=== PATIENT | male | born 1990 | race Caucasian/White ===

== ENCOUNTER 2021-10-03 22:03 | Emergency (ER) | payer MEDICAID ==
[~2021-10-03 22:03] MED LIST: DIPH25CA83 PO
--- NOTE | 2021-10-03 22:19 | NUR ---
pt yelling at registration window that "he wants a fucking doctor" "it is his right to see a doctor" asked pt to stop yelling and have a seat. he stated "fuck you call the police" pt escorted out of the lobby by security. per registration patient was dropped of in the parking lot and told that he could "either come to the hospital or go to [facility]". riddhi notified
== END 2021-10-03 23:35 | disposition left against medical advice (07) ==
LOC: ER 22:04
DX: Z04.6 Encounter for general psychiatric examination, requested by authority (principal); Z53.21 Procedure and treatment not carried out due to patient leaving prior to being seen by health care provider

== ENCOUNTER 2021-10-07 03:00 | Emergency (ER) | payer MEDICAID ==
[~2021-10-07] VITALS: Ht 185.4 cm; Wt 75.0 kg
[2021-10-07] MEDS ORDERED: lurasidone 60mg tablet PO ONE (04:15)
[2021-10-07] MEDS ORDERED: nicotine 14mg patch - 24hr TD ONE (04:15)
[2021-10-07] MEDS ORDERED: lurasidone 60mg tablet PO SCH (04:15)
--- NOTE | 2021-10-07 04:35 | NUR ---
PT WAS PROVIDED FOOD AND OTHER COMFORT MEASURES. PT RESTING QUIETLY AT THIS TIME.
[2021-10-07 04:40] LABS: BASOPHILS # (AUTO) 0.2 X10'3 (0-0.2); EOSINOPHILS # (AUTO) 0.1 X10'3 (0-0.9); EOSINOPHILS % (AUTO) 0.7 % (0-6); HEMATOCRIT 48.5 % (42.0-52.0); HEMOGLOBIN 16.8 g/dl (14.0-17.9); LYMPHOCYTES % (AUTO) 30.9 % (21-51); MEAN CORPUSCULAR HEMOGLOBIN 30.4 PG (27.0-31.0); MEAN CORPUSCULAR HGB CONC 34.6 g/dL (33.0-36.5); MEAN CORPUSCULAR VOLUME 87.8 FL (78-98); MEAN PLATELET VOLUME 8.7 FL (7.4-10.4); MONOCYTES # (AUTO) 1.1 X10'3 (0-0.9); MONOCYTES % (AUTO) 11.3 % (2-12); NEUTROPHILS # (AUTO) 5.3 X10'3 (1.8-7.7); NEUTROPHILS % (AUTO) 55.1 % (42-75); PLATELET COUNT 266 X10'3 (140-440); RED BLOOD COUNT 5.52 X10'6 (4.70-6.10); RED CELL DISTRIBUTION WIDTH 13.7 % (11.5-14.5); WHITE BLOOD COUNT 9.7 X10'3 (4.5-11.0)
[2021-10-07 04:55] LABS: ALANINE AMINOTRANSFERASE 23 U/L (12-78); ALBUMIN 4.3 G/DL (3.4-5.0); ALBUMIN/GLOBULIN RATIO 1.1 (1.1-1.5); ALKALINE PHOSPHATASE 132 IU/L (46-116); ANION GAP 14 (8-16); ASPARTATE AMINO TRANSFERASE 25 U/L (10-37); BILIRUBIN,TOTAL 1.1 MG/DL (0.1-1.0); BLOOD UREA NITROGEN 14 MG/DL (7-18); BUN/CREATININE RATIO 15.6 (5.4-32.0); CALCIUM 9.1 MG/DL (8.5-10.1); CHLORIDE 103 MMOL/L (99-107); GLUCOSE 86 MG/DL (70-104); POTASSIUM 3.3 MMOL/L (3.5-5.1); SODIUM 139 MMOL/L (135-145); TOTAL CARBON DIOXIDE 21.6 MMOL/L (24-32); TOTAL PROTEIN 8.2 G/DL (6.4-8.2); eGFR > 90 ML/MIN
[2021-10-07 05:04] LABS: ETHANOL 0.049 GM/DL (0.0-0.010)
[2021-10-07] MEDS ORDERED: ondansetron 4mg rapidly disintigrating tab PO ONE ×2 (05:05)
--- NOTE | 2021-10-07 06:30 | NUR ---
Recieved report from Andrae.
--- NOTE | 2021-10-07 06:33 | NUR ---
Packet faxed to [facility]
--- NOTE | 2021-10-07 09:16 | NUR ---
Pt eating breakfast, am medication given, pt tolerated well.
[2021-10-07 09:30] LABS: URINE AMPHETAMINE SCREEN POSITIVE (Neg); URINE BARBITUATE SCREEN NEGATIVE (Neg); URINE BENZODIAZEPINES SCREEN NEGATIVE (Neg); URINE CANNABINOID SCREEN POSITIVE (Neg); URINE COCAINE SCREEN NEGATIVE (Neg); URINE METHADONE SCREEN NEGATIVE (Neg); URINE OPIATE SCREEN NEGATIVE (Neg); URINE PHENCYCLIDINE SCREEN NEGATIVE (Neg)
--- NOTE | 2021-10-07 10:51 | NUR ---
[facility] is at the bedside evaluating the patient
--- NOTE | 2021-10-07 12:26 | NUR ---
Pt d/c home in good condition, instructions given ,pt verbalized understanding.
[2021-10-07 16:05] VITALS: BP 108/79
[2021-10-08] MEDS ORDERED: lurasidone 60mg tablet PO SCH (08:00)
== END 2021-10-07 16:08 | disposition home or self-care (01) ==
LOC: ER 03:00
DX: F20.9 Schizophrenia, unspecified (principal); Z20.822 Contact with and (suspected) exposure to COVID-19; F12.10 Cannabis abuse, uncomplicated; Z87.81 Personal history of (healed) traumatic fracture
CPT/HCPCS: 36415; 80053; 80305; 80320; 84443; 85025; 87811; 99285

== ENCOUNTER 2021-10-18 00:46 | Emergency (ER) | payer MEDICAID ==
[~2021-10-18] VITALS: Ht 185.4 cm; Wt 75.0 kg
[2021-10-18] MEDS ORDERED: ketorolac trometh inj. 60 MG/2 ML VIAL IM ONE (00:55)
[2021-10-18] MEDS ORDERED: acetaminophen 325mg tablet PO ONE (00:55)
[2021-10-18] MEDS ORDERED: LORazepam 1 MG tablet PO ONE (01:00)
[2021-10-18] MEDS ORDERED: lurasidone 20mg tablet PO SCH (01:00)
[2021-10-18] MEDS ORDERED: OLANZapine 5mg rapidly disint. tablet PO ONE (01:00)
[2021-10-18] MEDS ORDERED: buprenorphine/naloxone 8MG-2MG SUBlingual film SL SCH (01:01)
[2021-10-18] MEDS ORDERED: ESCITALOPRAM OXALATE 5 MG TABLET PO SCH (01:01)
--- NOTE | 2021-10-18 02:51 | NUR ---
PT WAS VERBALLY AGGRESSIVE UPON ARRIVAL AND CURSING AT STAFF. RN USED THERAPEUTIC COMMUNICATION TO CALM PATIENT AND ADMINISTERED MEDICATION PER MD ORDER. PT HAS REMOVED HIS VITAL MONITORING EQUIPMENT. PT HAS FALLEN ASLEEP AND ANKLE IS NOW SPLINTED PER MD ORDER.
[2021-10-18] MEDS ORDERED: LURA20TA PO (03:08)
--- NOTE | 2021-10-18 05:01 | NUR ---
PT REFUSED VITAL MONITORING. PT IS STILL SLEEPING. EQUAL RISE AND FALL OF CHEST NOTED
--- NOTE | 2021-10-18 05:25 | NUR ---
RN ATTEMPTED TO WAKE PATIENT FOR DISCHARGE. PT IS TOO GROGGY TO SAFELY GO HOME. RN PLACED PT BACK ON VITAL MONITORING WITH PT PERMISSION AND WILL CONTINUE TO MONITOR PATIENT HE RESTS AND WAKES UP
--- NOTE | 2021-10-18 06:14 | NUR ---
PT STATED HE WOULD LIKE TO BE TAKEN BY [facility] TO [address] [place] [address] WHEN HE IS AWAKE ENOUGH TO LEAVE
--- NOTE | 2021-10-18 07:22 | NUR ---
patient awake, educated on use of crutches at this time and discharged [facility] with bus pass
[2021-10-18 07:23] VITALS: BP 109/64
== END 2021-10-18 07:24 | disposition home or self-care (01) ==
LOC: ER 00:47
DX: S93.401A Sprain of unspecified ligament of right ankle, initial encounter (principal); F29 Unspecified psychosis not due to a substance or known physiological condition; F20.9 Schizophrenia, unspecified; F12.10 Cannabis abuse, uncomplicated; F14.10 Cocaine abuse, uncomplicated; Z79.899 Other long term (current) drug therapy; W17.89XA Other fall from one level to another, initial encounter; Y93.89 Activity, other specified; Y92.89 Other specified places as the place of occurrence of the external cause; Y99.8 Other external cause status
CPT/HCPCS: 29125; 73610; 96372; 99284; J1885

== ENCOUNTER 2023-06-25 23:54 | Emergency (ER) | payer MEDICAID ==
[~2023-06-25] VITALS: Ht 185.4 cm; Wt 90.0 kg
[~2023-06-25 23:54] MED LIST changes: +GABA300C PO; +LURA20TA8 PO
[2023-06-26 00:30] VITALS: BP 119/75; PULSE 106; TEMP 98.3; O2SAT 98
[2023-06-26 01:14] VITALS: RESP 19
[2023-06-26] MEDS ORDERED: NALO4SPR BOTHNARES (01:53)
== END 2023-06-26 02:04 | disposition home or self-care (01) ==
LOC: ER 23:54
DX: T40.411A Poisoning by fentanyl or fentanyl analogs, accidental (unintentional), initial encounter (principal); F12.90 Cannabis use, unspecified, uncomplicated; Z79.899 Other long term (current) drug therapy; Y92.89 Other specified places as the place of occurrence of the external cause
CPT/HCPCS: 99283

== ENCOUNTER 2024-04-17 11:59 | Emergency (ER) | payer MEDICAID ==
[~2024-04-17] VITALS: Ht 182.9 cm; Wt 89.0 kg
[~2024-04-17 11:59] MED LIST changes: +NALO4SPR BOTHNARES
[2024-04-17 12:28] VITALS: BP 174/91; PULSE 98; RESP 18; TEMP 97.9; O2SAT 97
[2024-04-17] MEDS ORDERED: HYDR-3686 PO (15:10)
[2024-04-17] MEDS ORDERED: PERM60CR4 TOP (15:10)
== END 2024-04-17 15:20 | disposition home or self-care (01) ==
LOC: ER 12:00
DX: Z20.7 Contact with and (suspected) exposure to pediculosis, acariasis and other infestations (principal); F20.9 Schizophrenia, unspecified; F12.90 Cannabis use, unspecified, uncomplicated; F11.90 Opioid use, unspecified, uncomplicated; F17.290 Nicotine dependence, other tobacco product, uncomplicated
CPT/HCPCS: 99283

== ENCOUNTER 2024-10-01 12:40 | Emergency (ER) | payer MEDICAID ==
[~2024-10-01] VITALS: Ht 180.3 cm; Wt 83.2 kg
[~2024-10-01 12:40] MED LIST changes: +PERM60CR4 TOP
[2024-10-01 12:53] VITALS: BP 130/68; PULSE 77; RESP 18; TEMP 97.8; O2SAT 98
[2024-10-01] MEDS ORDERED: HYDR-3686 PO (12:59)
[2024-10-01] MEDS ORDERED: BUPR1FIL3 SL (12:59)
[2024-10-01] MEDS ORDERED: TRAZ-251 PO (12:59)
[2024-10-01] MEDS ORDERED: GABA-1405 PO (12:59)
[2024-10-01] MEDS ORDERED: NALO4SPR BOTHNARES (13:01)
--- NOTE | 2024-10-01 13:01 | Physician Documentation ---
HPI ~ General Chief Complaint: Medication Refill Stated Complaint: MED REQUEST Time Seen by MD: 12:55 Primary Medical Doctor: None History of Present Illness HPI Comments Is a 34-year-old male with a history of polysubstance abuse who presents to the emergency department requesting medication refills. He reports that he missed his last primary care appointment. His main concern is obtaining a refill on his Suboxone. He reports that he otherwise feels well and denies additional concerns. Medication Reconciliation Allergies: Coded Allergies: No Known Allergies (Unverified , 10/01/24) Scheduled Buprenorphine Hcl/Naloxone Hcl (Suboxone 8 Mg-2 Mg Sl Film), 1 STRIP SL TID Gabapentin (Neurontin), 300 MG PO Q6H Gabapentin (Gabapentin), 1 TAB PO Q8H Hydroxyzine Hcl (Atarax), 1 TAB PO Q12H Lurasidone HCl (Latuda), 1 TAB PO DAILY Naloxone HCl (Narcan), 1 SPRAYS BOTHNARES ONCE Naloxone HCl (Narcan), 1 SPRAYS BOTHNARES ONCE Permethrin (Permethrin), 2 APPLIC TOP ONCE Trazodone HCl (Trazodone HCl), 1 TAB PO HS Scheduled PRN Diphenhydramine Hcl (Benadryl), 25 MG PO Q4H PRN for itching Past Medical History Past Medical History: Extremity Fracture, *PSYCH*, Schizophrenia Past Surgical History: no surgical history Alcohol Use: Occasionally Drug Use: marijuana, heroin Lives In: Home Occupation: employed Review of Systems ROS As stated above in the HPI, otherwise all systems are reviewed and negative. Physical Exam Physical Exam Vital Signs: Temperature: 97.8, Source: Oral, Heart Rate: 77, Respiratory Rate: 18, BP: 130/68, Pulse Oximetry: 98, Weight: 83.250 Oxygen Flow Rate: 0 Physical Exam General: Alert, no apparent distress. HEENT: PERRL, EOMI, no injection, moist mucous membranes. Neck: Full range of motion. Respiratory: Lungs clear, no respiratory distress. Chest: No accessory muscle use. Cardiovascular: Regular rate and rhythm, no murmurs. Gastrointestinal: Soft, nontender, nondistended. Bowels sounds present. Extremities: Normal range of motion, no deformity. Neurologic: Oriented x4. Psychiatric: Normal mood and affect. Skin: Normal color, warm and dry. No edema, no ecchymosis. Progress Results/Orders Results/Orders Vital Signs 10/01/24 12:53 Temp 97.8 Pulse 77 Resp 18 B/P (MAP) 130/68 Pulse Ox 98 O2 Flow Rate 0 Medical Decision Making Differential Dx:Considerations: Include: Adverse circumstances, Economic, Psychosocial, Medical services unavail., Medication refill, Medication non- compliance Departure Time of Disposition: 12:55 Disposition: 01 HOME / SELF CARE / HOMELESS Impression: Primary Impression: General medical exam Additional Impression: Medication refill Condition: Stable Discharge Instructions: Medical Screening Exam, Medicine Refill at the Emergency Department Additional Instructions: Medication refills sent. Followup with primary care. Referrals: NO PRIMARY CARE PROVIDER (PCP) Prescriptions Naloxone HCl (Narcan) 4 Mg/Actuation [place] 1 SPRAYS BOTHNARES ONCE for 14 Days, #1 EA 0 Refills Prov: KRIS MADERA NP 10/01/24 Gabapentin (Gabapentin) 600 Mg Tablet 1 TAB PO Q8H for 10 Days, #30 TAB 0 Refills Prov: KRIS MADERA NP 10/01/24 Trazodone HCl (Trazodone HCl) 50 Mg Tablet 1 TAB PO HS for insomnia for 30 Days, #30 TAB 0 Refills Prov: KRIS MADERA NP 10/01/24 Buprenorphine Hcl/Naloxone Hcl (Suboxone 8 Mg-2 Mg Sl Film) 8 Mg-2 Mg Film 1 STRIP SL TID for 5 Days, #15 STRIP Prov: KRIS MADERA NP 10/01/24 Hydroxyzine Hcl (Atarax) 25 Mg Tablet 1 TAB PO Q12H for anxiety for 30 Days, #60 TAB 0 Refills Prov: KRIS MADERA NP 10/01/24 Education Educated: Patient Educated regarding: diagnosis, treatment, prognosis, need for follow up Signature Scribe Signature: x Attestation: The note accurately reflects work and decisions made by me.Kris Hedrick NP 10/01/24 13:07 KRIS MADERA NP Oct 01, 2024 13:01
== END 2024-10-01 13:08 | disposition home or self-care (01) ==
LOC: ER 12:41
DX: F19.10 Other psychoactive substance abuse, uncomplicated (principal); Z76.0 Encounter for issue of repeat prescription; F20.9 Schizophrenia, unspecified; F12.90 Cannabis use, unspecified, uncomplicated
CPT/HCPCS: 99281

== ENCOUNTER 2024-10-13 12:20 | Emergency (ER) | payer MEDICAID ==
[~2024-10-13] VITALS: Ht 180.3 cm; Wt 82.7 kg
[~2024-10-13 12:20] MED LIST changes: +GABA-1405 PO; +HYDR-3686 PO; +TRAZ-251 PO
[2024-10-13 12:21] VITALS: TEMP 98
--- NOTE | 2024-10-13 12:28 | ELECTROCARDIOGRAPH REPORT ---
[facility] Test Date: 2024-10-13 Test Time: 12:27:28 Pat Name: MANISHA FERNANDES Department: [facility]-ER Patient ID: [id number] Room: Gender: M Bar Supervisor: : 1990 Requested By: GABRIELA HICKS Order Number: [id number] Reading MD: Measurements Intervals [place] Rate: 76 P: 62 TX: 148 QRS: 76 QRSD: 98 T: 44 QT: 379 QTc: 427 Interpretive Statements Sinus rhythm Please click the below link to view image of tracing.
[2024-10-13 12:40] LABS: MEAN PLATELET VOLUME 8.5 FL (7.4-10.4); RED CELL DISTRIBUTION WIDTH 14.0 % (11.5-14.5)
--- NOTE | 2024-10-13 12:50 | RADIOLOGY REPORT ---
CHEST RADIOGRAPH Indication: CP Technique: Single frontal view of the chest was obtained Comparison: None FINDINGS: Lines and Tubes: None Lungs: No focal consolidation. Pleura: No effusion. No pneumothorax. Cardiomediastinal contours: Unremarkable Bones: No acute osseous abnormality. IMPRESSION: No acute cardiopulmonary disease.
[2024-10-13 13:01] LABS: CREATININE 0.87 MG/DL (0.60-1.10); TOTAL CARBON DIOXIDE 27.4 MMOL/L (24-32); eCRCL 129 ML/MIN; eGFR > 90 ML/MIN
[2024-10-13 13:06] LABS: PRO BRAIN NATRIURETIC PEPTIDE < 30 PG/ML (0-125)
[2024-10-13 13:50] LABS: BASOPHILS % (MANUAL) 2.0 % (0-1); EOSINOPHILS % (MANUAL) 2.0 % (0-6); LYMPHOCYTES % (MANUAL) 59.0 % (21-51); MONOCYTES % (MANUAL) 7.0 % (2-12); NEUTROPHILS % (MANUAL) 30.0 % (42-75); PLATELET ESTIMATE NORMAL
--- NOTE | 2024-10-13 14:48 | Physician Documentation ---
History of Present Illness ~ Chief Complaint: Chest Pain Stated Complaint: CP Time Seen by MD: 14:13 Primary Medical Doctor: None Source: patient Mode of Arrival: POV Exam Limitations: no limitations HEART Score: 0 HPI 34-year-old male with chief complaint chest pain just prior to arrival. He states he was playing a video game on his phone waiting for a friend and suddenly he felt a sharp chest pain and he states he got really concerned about as he there were felt anything like this before and came straight to the ER however he states the pain only lasted for a few minutes and by the time he got to the ER it resolved. He has not had any pain since he has been at the ER for a few hours now. No shortness of breath, cough, heartburn or acid reflux, nausea, abdominal pain Medication Reconciliation Allergies: Coded Allergies: No Known Allergies (Unverified , 10/01/24) Scheduled Gabapentin (Neurontin), 300 MG PO Q6H Gabapentin (Gabapentin), 1 TAB PO Q8H Hydroxyzine Hcl (Atarax), 1 TAB PO Q12H Lurasidone HCl (Latuda), 1 TAB PO DAILY Naloxone HCl (Narcan), 1 SPRAYS BOTHNARES ONCE Naloxone HCl (Narcan), 1 SPRAYS BOTHNARES ONCE Permethrin (Permethrin), 2 APPLIC TOP ONCE Trazodone HCl (Trazodone HCl), 1 TAB PO HS Scheduled PRN Diphenhydramine Hcl (Benadryl), 25 MG PO Q4H PRN for itching Discontinued Medications Buprenorphine Hcl/Naloxone Hcl (Suboxone 8 Mg-2 Mg Sl Film), 1 STRIP SL TID Discontinued Reason: Auto Discontinued Past Medical History Past Medical History: Extremity Fracture, *PSYCH*, Schizophrenia Past Surgical History: no surgical history Alcohol Use: Occasionally Drug Use: marijuana, heroin Lives In: Home Occupation: employed Review of Systems All Other Systems at this time: Reviewed and Negative Physical Exam Vital Signs: Temperature: 98.0, Source: Oral, Heart Rate: 57, Respiratory Rate: 16, BP: 125/70, Pulse Oximetry: 99, Weight: 82.700 Oxygen Flow Rate: 0 Physical Exam General Appearance: Alert, WD/WN. NAD. HEENT: NCAT, PERRL, EOMI. Neck: Supple, trachea midline. Cardiovascular: RRR. No m/r/g. Lungs: CTAB. Breathing unlabored Abdomen: Soft, nondistended nontender Extremities: Normal inspection. No edema. Skin: Warm/dry, normal color Neurological: Alert and oriented x4, normal gait. Psychiatric: Affect congruent with mood. Progress Results/Orders Reviewed/noted all lab results: Yes Results/Orders Vital Signs 10/13/24 10/13/24 10/13/24 10/13/24 12:21 12:34 13:32 14:59 Temp 98.0 Pulse 84 57 62 Resp 16 16 16 B/P (MAP) 122/82 125/70 (88) 125/77 Pulse Ox 99 99 98 O2 Flow Rate 0 0 Laboratory Tests Test 10/13/24 12:29 White Blood Count 4.7 Red Blood Count 4.72 Hemoglobin 14.4 Hematocrit 41.9 L Mean Corpuscular Volume 88.7 Mean Corpuscular Hemoglobin 30.4 Mean Corpuscular Hemoglobin Concent 34.3 Red Cell Distribution Width 14.0 Platelet Count 234 Mean Platelet Volume 8.5 Neutrophils (%) (Auto) 32.7 L Lymphocytes (%) (Auto) 53.9 H Monocytes (%) (Auto) 10.6 Eosinophils (%) (Auto) 1.7 Basophils (%) (Auto) 1.1 H Neutrophils # (Auto) 1.5 L Lymphocytes # (Auto) 2.5 Monocytes # (Auto) 0.5 Eosinophils # (Auto) 0.1 Basophils # (Auto) 0.1 CBC Comment Differential Total Cells Counted 100 Neutrophils % (Manual) 30.0 L Lymphocytes % (Manual) 59.0 H Monocytes % (Manual) 7.0 Eosinophils % (Manual) 2.0 Basophils % (Manual) 2.0 H Platelet Estimate Normal Red Blood Cell Morphology Normal Basophilic Stippling Sodium Level 141 Potassium Level 4.2 Chloride Level 106 Carbon Dioxide Level 27.4 Anion Gap 8 Blood Urea Nitrogen 9 Creatinine 0.87 Estimated GFR/1.73 m2 > 90 BUN/Creatinine Ratio 10.3 Glucose Level 108 H Calcium Level 9.0 Troponin I High Sensitivity 8 Pro-B-Type Natriuretic Peptide < 30 Albumin 3.9 Chemistry Comments Heart Score: Heart Score Response (Comments) Value History Slightly Suspicious 0 Age <45 0 Risk Factors No known risk factors 0 Troponin Normal limit 0 Total 0 Medical Decision Making Heart Score: 0 Differential Dx:Considerations: Include: angina, aortic dissection, chest wall pain, cholelithiasis, CHF, costochondritis, esophageal reflux/spasm, gastritis, herpes zoster, myocardial infarction, pericarditis, pleuritis, pancreatitis, pneumonia, pneumothorax, pulmonary embolus, other Departure Time of Disposition: 19:19 ([] as well as other positive symptoms noted in the HPI. Otherwise all other systems are reviewed and negative. Start ) Disposition: 01 HOME / SELF CARE / HOMELESS Impression: Primary Impression: Chest pain Qualified Codes: R07.9 - Chest pain, unspecified Condition: Stable Discharge Instructions: Nonspecific Chest Pain, Adult Additional Instructions: WORK UP IN ER WAS NEGATIVE LABS NORMAL EKG NORMAL CHEST XRAY NORMAL Referrals: NO PRIMARY CARE PROVIDER (PCP) Education Educated: Patient Educated regarding: diagnosis, treatment, need for follow up Signature Scribe Signature: x Attestation: POLINA Art Oct 13, 2024 14:48
[2024-10-13 14:59] VITALS: BP 125/77; PULSE 62; RESP 16; O2SAT 98
== END 2024-10-13 15:01 | disposition home or self-care (01) ==
LOC: ER 12:21
DX: R07.89 Other chest pain (principal); F20.9 Schizophrenia, unspecified; F12.90 Cannabis use, unspecified, uncomplicated; F11.90 Opioid use, unspecified, uncomplicated; Z72.89 Other problems related to lifestyle
CPT/HCPCS: 36415; 71045; 80048; 83880; 84484; 85007; 85025; 93005; 99285

== ENCOUNTER 2024-10-20 08:21 | Emergency (ER) | payer MEDICAID ==
[~2024-10-20] VITALS: Ht 180.3 cm; Wt 90.1 kg
[2024-10-20 08:33] VITALS: BP 121/62; PULSE 83; RESP 16; TEMP 98.3; O2SAT 98
--- NOTE | 2024-10-20 08:35 | Physician Documentation ---
HPI ~ General Stated Complaint: MED REQUEST Time Seen by MD: 08:34 Primary Medical Doctor: None History of Present Illness HPI Comments This is a 34-year-old male who presents from [facility], where he is currently in treatment for alcohol and opioid abuse history. He notes that he is out of his usual daily medications, and requests a refill as he does not have a local provider. He denies any symptoms of illness or other concerns. Medication Reconciliation Allergies: Coded Allergies: No Known Allergies (Unverified , 10/01/24) Scheduled Acamprosate Calcium (Acamprosate Calcium), 2 TAB PO TID Clonidine HCl (Clonidine HCl), 1 TAB PO BID Gabapentin (Neurontin), 300 MG PO Q6H Gabapentin (Gabapentin), 1 TAB PO Q8H Gabapentin (Gabapentin), 1 TAB PO Q8H Hydroxyzine Hcl (Atarax), 1 TAB PO Q12H Hydroxyzine Hcl* (Atarax*), 1 TAB PO Q12H Lurasidone HCl (Latuda), 1 TAB PO DAILY Naloxone HCl (Narcan), 1 SPRAYS BOTHNARES ONCE Naloxone HCl (Narcan), 1 SPRAYS BOTHNARES ONCE Permethrin (Permethrin), 2 APPLIC TOP ONCE Prazosin Hcl (Prazosin Hcl), 1 CAP PO HS Trazodone HCl (Trazodone HCl), 1 TAB PO HS Trazodone HCl (Trazodone HCl), 1 TAB PO HS Scheduled PRN Buprenorphine HCl/Naloxone HCl (Buprenorphin-Naloxon 8-2 mg Tb), 2 TAB SL QDAY PRN PRN for opioid w/d Diphenhydramine Hcl (Benadryl), 25 MG PO Q4H PRN for itching Past Medical History Past Medical History: Extremity Fracture, *PSYCH*, Schizophrenia Past Surgical History: no surgical history Alcohol Use: Occasionally Drug Use: marijuana, heroin Lives In: Home Occupation: employed Review of Systems ROS As stated above in the HPI, otherwise all systems are reviewed and negative. Physical Exam Physical Exam Physical Exam General: Alert, no apparent distress. HEENT: PERRL, EOMI, no injection, moist mucous membranes. Neck: Full range of motion. Respiratory: Lungs clear, no respiratory distress. Chest: No accessory muscle use. Cardiovascular: Regular rate and rhythm, no murmurs. Gastrointestinal: Soft, nontender, nondistended. Bowels sounds present. Extremities: Normal range of motion, no deformity. Neurologic: Oriented x4. Psychiatric: Normal mood and affect. Skin: Normal color, warm and dry. No edema, no ecchymosis. Progress Results/Orders Results/Orders Vital Signs 10/20/24 08:33 Temp 98.3 Pulse 83 Resp 16 B/P (MAP) 121/62 Pulse Ox 98 O2 Flow Rate 0 Medical Decision Making Differential Dx:Considerations: Include: Adverse circumstances, Economic, Psychosocial, Medical services unavail., Medication refill, Medication non- compliance Departure Time of Disposition: 09:10 Disposition: HOME / SELF CARE / HOMELESS Impression: Primary Impression: General medical exam Additional Impression: Medication refill Condition: Stable Discharge Instructions: Medical Screening Exam, Medicine Refill at the Emergency Department Additional Instructions: You were provided with a short supply of your meds. You need to see a primary care for further refills. Return if needed. Referrals: NO PRIMARY CARE PROVIDER (PCP) Prescriptions Hydroxyzine Hcl* (Atarax*) 25 Mg Tablet 1 TAB PO Q12H for anxiety for 10 Days, #20 TAB Prov: KRIS MADERA NP 10/20/24 Prazosin Hcl (Prazosin Hcl) 2 Mg Capsule 1 CAP PO HS for 10 Days, #10 CAP 0 Refills Prov: KRIS MADERA NP 10/20/24 Trazodone HCl (Trazodone HCl) 100 Mg Tablet 1 TAB PO HS for 10 Days, #10 TAB 0 Refills Prov: KRIS MADERA NP 10/20/24 Clonidine HCl (Clonidine HCl) 0.1 Mg Tablet 1 TAB PO BID for 10 Days, #20 TAB 0 Refills Prov: KRIS MADERA NP 10/20/24 Gabapentin (Gabapentin) 600 Mg Tablet 1 TAB PO Q8H for 10 Days, #30 TAB 0 Refills Prov: KRIS MADERA NP 10/20/24 Acamprosate Calcium (Acamprosate Calcium) 333 Mg Tablet.dr 2 TAB PO TID for 10 Days, #60 TAB 0 Refills Prov: KRIS MADERA NP 10/20/24 Buprenorphine HCl/Naloxone HCl (Buprenorphin-Naloxon 8-2 mg Tb) 8 Mg-2 Mg Tab.subl 2 TAB SL QDAY PRN PRN for opioid w/d for 7 Days, #14 TAB 0 Refills Prov: KRIS MADERA NP 10/20/24 Education Educated: Patient Educated regarding: diagnosis, treatment, prognosis, need for follow up Signature Scribe Signature: x Attestation: The note accurately reflects work and decisions made by me.Kris Madera - MAHAMED 10/20/24 09:47 KRIS MADERA NP Oct 20, 2024 08:35
[2024-10-20] MEDS ORDERED: CLON0.1T2 PO (09:13)
[2024-10-20] MEDS ORDERED: TRAZ-256 PO (09:13)
[2024-10-20] MEDS ORDERED: BUPR1TAB45 SL (09:13)
[2024-10-20] MEDS ORDERED: PRAZ2CAP2 PO (09:13)
[2024-10-20] MEDS ORDERED: ACAM333T8 PO (09:13)
== END 2024-10-20 09:19 | disposition home or self-care (01) ==
LOC: ER 08:21
DX: Z00.8 Encounter for other general examination (principal); Z76.0 Encounter for issue of repeat prescription; F20.9 Schizophrenia, unspecified; F12.90 Cannabis use, unspecified, uncomplicated; F11.90 Opioid use, unspecified, uncomplicated
CPT/HCPCS: 99281

== ENCOUNTER 2024-11-02 08:59 | Emergency (ER) | payer MEDICAID ==
[~2024-11-02] VITALS: Ht 180.3 cm; Wt 83.1 kg
[~2024-11-02 08:59] MED LIST changes: +ACAM333T8 PO; +BUPR1TAB45 SL; +CLON0.1T2 PO; +PRAZ2CAP2 PO; +TRAZ-256 PO
[2024-11-02 09:12] VITALS: BP 94/64; PULSE 62; RESP 18; TEMP 98.6; O2SAT 98
[2024-11-02] MEDS ORDERED: GABA-1405 PO (11:25)
[2024-11-02] MEDS ORDERED: BUPR1TAB45 SL (11:25)
[2024-11-02] MEDS ORDERED: HYDR-3686 PO (11:25)
[2024-11-02] MEDS ORDERED: CLON0.1T2 PO (11:25)
[2024-11-02] MEDS ORDERED: ACAM333T8 PO (11:25)
[2024-11-02] MEDS ORDERED: TRAZ-256 PO (11:25)
[2024-11-02] MEDS ORDERED: ARIP10TA87 PO (11:30)
--- NOTE | 2024-11-02 11:36 | Physician Documentation ---
HPI ~ General Chief Complaint: Medication Request Stated Complaint: MED REQUEST Time Seen by MD: 10:49 Primary Medical Doctor: None History of Present Illness HPI Comments This is a 34-year-old male with a history of schizophrenia and multiple substance abuse who is participating in a residential rehab program at [facility], patient presents requesting refill of multiple medications as he has not had a chance to establish with a primary care provider yet, patient is additionally requesting to be restarted on Abilify which he has been taking previously for schizophrenia as he is beginning to have symptoms again such as auditory hallucinations, patient denies any SI or HI. Patient reports no other acute symptoms or concerns. Medication Reconciliation Allergies: Coded Allergies: No Known Allergies (Unverified , 11/02/24) Scheduled Acamprosate Calcium (Acamprosate Calcium), 2 TAB PO TID Aripiprazole (Aripiprazole), 1 TAB PO DAILY Clonidine HCl (Clonidine HCl), 1 TAB PO BID Gabapentin (Neurontin), 300 MG PO Q6H Gabapentin (Gabapentin), 1 TAB PO Q8H Gabapentin (Gabapentin), 1 TAB PO Q8H Hydroxyzine Hcl (Atarax), 1 TAB PO Q12H Lurasidone HCl (Latuda), 1 TAB PO DAILY Naloxone HCl (Narcan), 1 SPRAYS BOTHNARES ONCE Naloxone HCl (Narcan), 1 SPRAYS BOTHNARES ONCE Permethrin (Permethrin), 2 APPLIC TOP ONCE Prazosin Hcl (Prazosin Hcl), 1 CAP PO HS Trazodone HCl (Trazodone HCl), 1 TAB PO HS Trazodone HCl (Trazodone HCl), 1 TAB PO HS Scheduled PRN Buprenorphine HCl/Naloxone HCl (Buprenorphin-Naloxon 8-2 mg Tb), 2 TAB SL QDAY PRN PRN for opioid w/d Diphenhydramine Hcl (Benadryl), 25 MG PO Q4H PRN for itching Discontinued Medications Hydroxyzine Hcl* (Atarax*), 1 TAB PO Q12H Discontinued Reason: Auto Discontinued Past Medical History Past Medical History: Extremity Fracture, *PSYCH*, Schizophrenia Past Surgical History: no surgical history Alcohol Use: Occasionally Drug Use: marijuana, heroin Lives In: Home Occupation: employed Review of Systems ROS As stated above in the HPI, otherwise all systems are reviewed and negative. Physical Exam Physical Exam Vital Signs: Temperature: 98.6, Source: Temporal, Heart Rate: 62, Respiratory Rate: 18, BP: 94/64, Pulse Oximetry: 98, Weight: 83.100 Oxygen Flow Rate: 0 Physical Exam VITALS: Reviewed and as above. GENERAL: Alert, nontoxic appearing, no apparent distress. RESPIRATORY: No increased work of breathing, no respiratory distress, speaking in full clear sentences PSYCH: Normal mood and affect, voicing no HI or SI. no agitation Progress Results/Orders Results/Orders Vital Signs 11/02/24 09:12 Temp 98.6 Pulse 62 Resp 18 B/P (MAP) 94/64 Pulse Ox 98 O2 Flow Rate 0 Medical Decision Making Findings Review of medication records indicate patient has been on medications requested for some time, review of previous visit indicates patient has been advised to follow up with primary care provider to manage these medications, as patient is part of a residential treatment program I believe patient will reliably take prescribed medications further and tender purpose, additionally as patient reports good control as schizophrenia symptoms previously with Abilify while I will prescribe this medication. Patient has been advised to follow up with pr imary care provider with the [facility] for long-term management of these medications which he verbalized understanding of. Patient provided home care instructions and follow up instructions along with careful return to care precautions which he verbalized understanding of. Differential Dx:Considerations: Include: Adverse circumstances, Economic, Psychosocial, Medical services unavail., Medication refill, Medication non- compliance Departure Disposition: 01 HOME / SELF CARE / HOMELESS Impression: Primary Impression: General medical exam Additional Impressions: Medication refill History of schizophrenia Condition: Stable Discharge Instructions: Medicine Refill at the Emergency Department Additional Instructions: Please follow up with your primary care provider or [facility] to manage these medications on a long-term basis. I have prescribed these medications on a short-term basis in the meantime. Please follow up with your primary care pr ovider in the next few days. Please return to the emergency department for any new or worsening concerning symptoms including but not limited to feelings of harming yourself or others. Referrals: NO PRIMARY CARE PROVIDER (PCP) Prescriptions Aripiprazole (Aripiprazole) 10 Mg Tablet 1 TAB PO DAILY for 14 Days, #14 TAB 0 Refills Prov: THEODORA AGARWAL [employer]AD[employer] 11/02/24 Trazodone HCl (Trazodone HCl) 100 Mg Tablet 1 TAB PO HS for 10 Days, #10 TAB 0 Refills Prov: THEODORA AGARWAL [facility] 11/02/24 Clonidine HCl (Clonidine HCl) 0.1 Mg Tablet 1 TAB PO BID for 10 Days, #20 TAB 0 Refills Prov: THEODORA AGARWAL [facility] 11/02/24 Gabapentin (Gabapentin) 600 Mg Tablet 1 TAB PO Q8H for 10 Days, #30 TAB 0 Refills Prov: THEODORA AGARWAL [facility] 11/02/24 Acamprosate Calcium (Acamprosate Calcium) 333 Mg Tablet.dr 2 TAB PO TID for 10 Days, #60 TAB 0 Refills Prov: THEODORA AGARWALP 11/02/24 Buprenorphine HCl/Naloxone HCl (Buprenorphin-Naloxon 8-2 mg Tb) 8 Mg-2 Mg Tab.subl 2 TAB SL QDAY PRN PRN for opioid w/d for 7 Days, #14 TAB 0 Refills Prov: THEODORA AGARWAL [facility] 11/02/24 Hydroxyzine Hcl (Atarax) 25 Mg Tablet 1 TAB PO Q12H for anxiety for 30 Days, #60 TAB 0 Refills Prov: THEODORA AGARWAL [facility] 11/02/24 Education Educated: Patient Educated regarding: diagnosis, treatment, prognosis, need for follow up Signature Scribe Signature: No scribe Attestation: The note accurately reflects work and decisions made by me.RAMANDEEP Faustin 11/02/24 21:06 THEODORA AGARWAL Nov 02, 2024 11:36
== END 2024-11-02 12:03 | disposition home or self-care (01) ==
LOC: ER 08:59
DX: Z00.00 Encounter for general adult medical examination without abnormal findings (principal); F20.9 Schizophrenia, unspecified; Z76.0 Encounter for issue of repeat prescription
CPT/HCPCS: 99281

== ENCOUNTER 2024-11-21 12:01 | Emergency (ER) | payer MEDICAID ==
[~2024-11-21] VITALS: Ht 180.3 cm; Wt 80.4 kg
[~2024-11-21 12:01] MED LIST changes: +ARIP10TA87 PO
[2024-11-21 12:12] VITALS: BP 121/90; PULSE 83; RESP 16; TEMP 97.2; O2SAT 98
--- NOTE | 2024-11-21 13:25 | Physician Documentation ---
HPI ~ General Chief Complaint: Medication Refill Stated Complaint: MED REQUEST Time Seen by MD: 12:38 Primary Medical Doctor: None History of Present Illness HPI Comments Patient is seen today stating in his not have a primary care but states he does need refills of multiple medications. Patient states he plans on going to establish care with a primary care tomorrow. Patient states he needs refills of clonidine and a camper state, trazodone, and buprenorphine. Patient has no oth er concern or complaint at this time other than withdrawals from buprenorphine stating he has not had his medications in 3-4 days. Medication Reconciliation Allergies: Coded Allergies: No Known Allergies (Unverified , 11/21/24) Scheduled Acamprosate Calcium (Acamprosate Calcium), 2 TAB PO TID Aripiprazole (Aripiprazole), 1 TAB PO DAILY Clonidine HCl (Clonidine HCl), 1 TAB PO BID Gabapentin (Neurontin), 300 MG PO Q6H Gabapentin (Gabapentin), 1 TAB PO Q8H Gabapentin (Gabapentin), 1 TAB PO Q8H Hydroxyzine Hcl (Atarax), 1 TAB PO Q12H Lurasidone HCl (Latuda), 1 TAB PO DAILY Naloxone HCl (Narcan), 1 SPRAYS BOTHNARES ONCE Naloxone HCl (Narcan), 1 SPRAYS BOTHNARES ONCE Permethrin (Permethrin), 2 APPLIC TOP ONCE Prazosin Hcl (Prazosin Hcl), 1 CAP PO HS Trazodone HCl (Trazodone HCl), 1 TAB PO HS Trazodone HCl (Trazodone HCl), 1 TAB PO HS Scheduled PRN Buprenorphine HCl/Naloxone HCl (Buprenorphin-Naloxon 8-2 mg Tb), 2 TAB SL QDAY PRN PRN for opioid w/d Diphenhydramine Hcl (Benadryl), 25 MG PO Q4H PRN for itching Past Medical History Past Medical History: Extremity Fracture, *PSYCH*, Schizophrenia Past Surgical History: no surgical history Alcohol Use: Occasionally Drug Use: marijuana, heroin Lives In: Home Occupation: employed Review of Systems Constitutional: Denies: chills, fever, weakness Eyes: Denies: pain, blurred vision ENT: Denies: ear pain, nose pain, throat pain, mouth pain Respiratory: Denies: cough, shortness of breath Cardiovascular: Denies: chest pain, palpitations Gastrointestinal: Denies: abdominal pain, nausea, vomiting Genitourinary: Denies: burning, dysuria Male Genitalia: Denies: penile discharge, testicular pain Neurological: Denies: headache, dizziness Musculoskeletal: Denies: pain, swelling Integumentary: Denies: rash, lesions Allergic/Immunologic: Denies: hives, itching Hematologic/Lymphatic: Denies: no symptoms reported Psychiatric: Denies: depression, anxiety Physical Exam Physical Exam Vital Signs: Temperature: 97.2, Source: Temporal, Heart Rate: 83, Respiratory Rate: 16, BP: 121/90, Pulse Oximetry: 98, Weight: 80.400 Oxygen Flow Rate: 0 Physical Exam General: Awake and Alert, no acute distress. HEENT: Conjunctiva pink, Sclera clear, Mucus Membranes moist. Neck: Supple without masses and tenderness. Resp: Unlabored. Lungs clear to auscultation bilaterally. Heart: Regular Rate and rhythm, normal S1 and S2 without murmur, rub or gallop. Abdomen: Soft and non tender no organomegaly Extremities: No cyanosis,clubbing or edema. Skin: Warm and Dry. Progress Results/Orders Results/Orders Vital Signs 11/21/24 12:12 Temp 97.2 Pulse 83 Resp 16 B/P (MAP) 121/90 Pulse Ox 98 O2 Flow Rate 0 Medical Decision Making Findings Patient is seen today stating in his not have a primary care but states he does need refills of multiple medications. Patient states he plans on going to establish care with a primary care tomorrow. Patient states he needs refills of clonidine and a camper state, trazodone, and buprenorphine. Patient has no other concern or complaint at this time other than withdrawals from buprenorphine stating he has not had his medications in 3-4 days. Patient was given multiple medical medication refills today. Including buprenorphine, acamprosate, and trazodone. Patient will establish care with primary care for further eval and treatment and further refills. Departure Disposition: HOME / SELF CARE / HOMELESS Impression: Primary Impression: General medical exam Additional Impressions: Opioid dependence, uncomplicated Insomnia Qualified Codes: G47.00 - Insomnia, unspecified Condition: Stable Discharge Instructions: Medicine Refill at the Emergency Department Additional Instructions: Patient was given multiple medical medication refills today. Including buprenorphine, acamprosate, and trazodone. Patient will establish care with primary care for further eval and treatment and further refills. Referrals: NO PRIMARY CARE PROVIDER (PCP) Prescriptions Buprenorphine Hcl/Naloxone Hcl (Suboxone 8 Mg-2 Mg Sl Film) 8 Mg-2 Mg Film 1 STRIP SL BID for 7 Days, #14 STRIP Prov: FALLON YEPEZ 11/21/24 Trazodone HCl (Trazodone HCl) 50 Mg Tablet 1 TAB PO HS for 7 Days, #21 TAB 0 Refills Prov: FALLON YEPEZ 11/21/24 Acamprosate Calcium (Acamprosate Calcium) 333 Mg Tablet. 1 TAB PO Q8H for 7 Days, #21 TAB 0 Refills Prov: FALLON YEPEZ 11/21/24 Signature Scribe Signature: No scribe Attestation: No scribe FALLON YEPEZ Nov 21, 2024 13:25
[2024-11-21] MEDS ORDERED: ACAM333T8 PO (13:33)
[2024-11-21] MEDS ORDERED: BUPR1FIL3 SL (13:33)
[2024-11-21] MEDS ORDERED: TRAZ-251 PO (13:33)
== END 2024-11-21 14:04 | disposition home or self-care (01) ==
LOC: ER 12:01
DX: Z00.00 Encounter for general adult medical examination without abnormal findings (principal); F11.20 Opioid dependence, uncomplicated; G47.00 Insomnia, unspecified; Z76.0 Encounter for issue of repeat prescription; F20.9 Schizophrenia, unspecified; F12.90 Cannabis use, unspecified, uncomplicated
CPT/HCPCS: 99281

== ENCOUNTER 2025-02-01 21:35 | Emergency (ER) | payer MEDICAID ==
[~2025-02-01] VITALS: Ht 182.9 cm; Wt 84.0 kg
[~2025-02-01 21:35] MED LIST changes: +ARIP5TAB12 PO; +BUPR1FIL3 SL; -GABA300C PO; -LURA20TA8 PO; -PERM60CR4 TOP; -TRAZ-251 PO
[2025-02-01] MEDS: haloperidol lactate 5mg/ml inj IM ONE (22:01)
--- NOTE | 2025-02-01 22:06 | Physician Documentation ---
History of Present Illness ~ Stated Complaint: MH Time Seen by MD: 21:45 Primary Medical Doctor: None HPI 34-year-old male presents to the emergency department with family member with bizarre behavior and outbursts. Reports SI and HI intent. Reports he wishes jumped. No obvious lacerations abrasions contusions. Reports that he has been off his medication Abilify for 14-16 days. Unaware of the validity of his story. Verbally aggressive, audible and visual hallucinations. Medication Reconciliation Allergies: Coded Allergies: No Known Allergies (Unverified , 02/01/25) Scheduled Acamprosate Calcium (Acamprosate Calcium), 2 TAB PO TID Acamprosate Calcium (Acamprosate Calcium), 1 TAB PO Q8H Aripiprazole (Aripiprazole), 1 TAB PO DAILY Aripiprazole* (Abilify*), 10 MG PO DAILY Buprenorphine Hcl/Naloxone Hcl (Suboxone 8 Mg-2 Mg Sl Film), 1 STRIP SL BID Clonidine HCl (Clonidine HCl), 1 TAB PO BID Gabapentin (Gabapentin), 1 TAB PO Q8H Hydroxyzine Hcl (Atarax), 1 TAB PO Q12H Naloxone HCl (Narcan), 1 SPRAYS BOTHNARES ONCE Prazosin Hcl (Prazosin Hcl), 1 CAP PO HS Trazodone HCl (Trazodone HCl), 1 TAB PO HS Scheduled PRN Buprenorphine HCl/Naloxone HCl (Buprenorphin-Naloxon 8-2 mg Tb), 2 TAB SL QDAY PRN PRN for opioid w/d Diphenhydramine Hcl (Benadryl), 25 MG PO Q4H PRN for itching Past Medical History Past Medical History: Extremity Fracture, *PSYCH*, Schizophrenia Past Surgical History: no surgical history Alcohol Use: Occasionally Drug Use: marijuana, heroin Lives In: Home Occupation: employed Review of Systems All Other Systems at this time: Reviewed and Negative Psychiatric: Reports: see HPI, depression, anxiety, suicidal, hallucinations Physical Exam Vital Signs: RN Vital Signs have been reviewed: Yes General Appearance: alert, other (Aggressive psychotic behavior) EENT: PERRL/EOMI Head: normal inspection Respiratory: lungs clear Chest: no accessory muscle use Cardiovascular: normal peripheral pulses Gastrointestinal: non-tender Extremities: normal range of motion Neurologic: unable to test Motor / Sensory: no motor deficit Cerebellar function exam: normal Appearance/Memory/Insight: disheveled Behavior/Eye contact/Speech: threatening eye contact, increased rate of speech Thought/Hallucinations: delusions, flight of ideas, grandiose Affect: angry, anxious Skin: warm/dry; No: cyanosis, rash, abrasion, ecchymosis, swelling, laceration Lymphatic: no adenopathy Progress Results/Orders Results/Orders Orders - DISHA MCMAHON Cbc/Diff (02/01/25 21:46) Urinalysis (02/01/25 21:46) Drug Screen, Urine (02/01/25 21:46) Ethanol (02/01/25 21:46) TSH (02/01/25 21:46) Med Rec (02/01/25 21:46) 1799.11 (02/01/25 21:46) BMP (02/01/25 21:46) Close Observation Level (02/01/25 21:46) Covid19 Binax Poc Result Entry (02/01/25 21:46) Substance Use Navigator (02/01/25 21:46) Regular Diet (02/02/25 Breakfast) CMP (02/01/25 21:46) Completed Orders - DISHA MCMAHON Diphenhydramine Inj (Benadryl Inj.) (02/01/25 21:50) Haloperidol Lact. (Haldol) (02/01/25 21:50) Lorazepam Inj (Ativan Inj) (02/01/25 21:50) Medications Received in ER Medications (Trade) Dose Ordered Sig/Compa Route PRN Reason Start Time Stop Time Status Last Admin Dose Admin (Benadryl inj.) 50 mg ONCE ONCE IM 02/01/25 21:50 02/01/25 21:53 DC 02/01/25 22:01 50 MG (Haldol) 5 mg ONCE ONCE IM 02/01/25 21:50 02/01/25 21:53 DC 02/01/25 22:01 5 MG (Ativan inj) 2 mg ONCE ONCE IM 02/01/25 21:50 02/01/25 21:53 DC 02/01/25 22:01 2 MG Vital Signs 02/01/25 02/01/25 02/01/25 21:47 21:50 22:01 Resp 23 21 23 Laboratory Tests Test 02/01/25 22:00 Medical Decision Making Additional information obtaine: N/A Findings 34-year-old male with prior psychiatric history presents with acute psychosis without obvious trauma. Security alerted right away and at patient's side. He was calmly escorted to room 14 where he was placed on a 1799, labs initiated along with B 52 for sedation. Primary secondary examination unremarkable other than stated above. 10:00 p.m. patient received B 52. He is behavior and outbursts is slow to resolve and he is beginning to rest comfortably. Continues to have security at room side. Signed out to ED attending Differential Dx:Considerations: Include: Alcohol abuse, Anxiety, Bipolar disorder, Conversion disorder, Depression, Encephaloathy, Homicidal, Panic disorder, Personality disorder, Schizophrenia, Substance abuse, Suicidal, Other Departure Impression: Primary Impression: Psychosis Qualified Codes: F29 - Unspecified psychosis not due to a substance or known physiological condition Referrals: NO PRIMARY CARE PROVIDER (PCP) Signature Scribe Signature: . Attestation: . DISHA MCMAHON PAC Feb 01, 2025 22:06
[2025-02-01 22:32] LABS: MEAN PLATELET VOLUME 8.7 FL (7.4-10.4); RED CELL DISTRIBUTION WIDTH 14.2 % (11.5-14.5)
[2025-02-01 22:45] LABS: CREATININE 1.10 MG/DL (0.60-1.10); TOTAL CARBON DIOXIDE 22.7 MMOL/L (24-32); eCRCL 105 ML/MIN; eGFR 77 ML/MIN
[2025-02-01 22:54] LABS: ETHANOL 219 MG/DL (<10)
[2025-02-02 10:51] LABS: LEUKOCYTE ESTERASE ,URINE NEGATIVE (Neg); NITRITES, URINE NEGATIVE (Neg); OCCULT BLOOD,URINE SMALL (Neg)
[2025-02-02 10:54] LABS: UA COLLECTION TYPE NON-SPECIFIED
[2025-02-02 10:59] LABS: CAL OXALATE CRYSTALS 2+ /HPF (NEGATIVE); HYALINE CASTS 0-3 /LPF (NEGATIVE); MUCUS STRANDS MANY /LPF (Neg)
[2025-02-02 11:00] LABS: SQUAMOUS EPITHELIAL CELL,UR FEW /LPF (FEW)
[2025-02-02 11:22] LABS: URINE AMPHETAMINE SCREEN POSITIVE (Neg); URINE BARBITUATE SCREEN NEGATIVE (Neg); URINE BENZODIAZEPINES SCREEN NEGATIVE (Neg); URINE CANNABINOID SCREEN POSITIVE (Neg); URINE COCAINE SCREEN NEGATIVE (Neg); URINE METHADONE SCREEN NEGATIVE (Neg); URINE OPIATE SCREEN NEGATIVE (Neg); URINE PHENCYCLIDINE SCREEN NEGATIVE (Neg)
[2025-02-02] MEDS: potassium Cl 20 mEq SR tablet PO ONE (12:29)
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
[2025-02-02] MEDS ORDERED: ARIP5TAB12 PO (15:35)
[2025-02-02] MEDS ORDERED: BUPR1FIL3 SL (15:35)
[2025-02-02] MEDS ORDERED: TRAZ-256 PO (15:40)
[2025-02-02] MEDS ORDERED: GABA-1405 PO (15:40)
[2025-02-02] MEDS ORDERED: DIPH25CA83 PO (15:40)
[2025-02-02] MEDS ORDERED: PRAZ2CAP2 PO (15:40)
[2025-02-02] MEDS ORDERED: ACAM333T8 PO (15:40)
[2025-02-02] MEDS ORDERED: HYDR-3686 PO (15:40)
[2025-02-02] MEDS: ACAMPROSATE CALCIUM 333 MG TAB PO SCH (16:00)
[2025-02-02] MEDS: buprenorphine/naloxone 8MG-2MG SUBlingual film SL SCH (18:10)
[2025-02-04 06:07] VITALS: BP 108/55; PULSE 60; TEMP 97.2; O2SAT 97
[2025-02-04 06:35] VITALS: RESP 16
== END 2025-02-04 19:57 | disposition home or self-care (01) ==
LOC: ER 21:35
DX: F29 Unspecified psychosis not due to a substance or known physiological condition (principal); F20.9 Schizophrenia, unspecified; F12.90 Cannabis use, unspecified, uncomplicated; F11.90 Opioid use, unspecified, uncomplicated; Z20.822 Contact with and (suspected) exposure to COVID-19; Z79.899 Other long term (current) drug therapy; Z72.89 Other problems related to lifestyle
CPT/HCPCS: 36415; 80053; 80305; 80320; 81001; 84443; 85025; 87811; 96372; 99285; J1200; J1630; J2060; Q0177

== ENCOUNTER 2025-02-21 12:33 | Emergency (ER) | payer MEDICAID ==
[~2025-02-21] VITALS: Ht 180.3 cm; Wt 83.5 kg
[~2025-02-21 12:33] MED LIST changes: -ARIP10TA87 PO; -BUPR1TAB45 SL; -CLON0.1T2 PO; -NALO4SPR BOTHNARES
[2025-02-21 12:53] VITALS: BP 111/65; PULSE 99; TEMP 98.2; O2SAT 98
--- NOTE | 2025-02-21 14:38 | Physician Documentation ---
History of Present Illness ~ Chief Complaint: Medical Clearance Stated Complaint: MED CLEARANCE Time Seen by MD: 14:04 Primary Medical Doctor: None HPI 4-year-old male presents to the ED requesting medical clearance for ETOH abuse states that he uses Suboxone chronically because he used to be a fentanyl user he says that he has a Librium prescribed but has been unable to pick it up because he has been tapering his alcohol usage over the last three days and has been ill. Normally drinks half a handle a day he has any history of alcohol withdrawal induced seizures. States he drank earlier today had five shots states feeling ill from withdrawal. States he also needs trazodone for [facility] at [facility] within 5 years?: Yes Medication Reconciliation Allergies: Coded Allergies: No Known Allergies (Unverified , 02/21/25) Scheduled Acamprosate Calcium (Acamprosate Calcium), 2 TAB PO Q8H, (Reported) Aripiprazole* (Abilify*), 3 TAB PO DAILY Buprenorphine HCl/Naloxone HCl (Suboxone 12 mg-3 mg Sl Film), 1 STRIP SL DAILY Buprenorphine Hcl/Naloxone Hcl (Suboxone 8 Mg-2 Mg Sl Film), 1 STRIP SL TID, (Reported) Chlordiazepoxide Hcl (Librium), 25 MG PO TID Diphenhydramine Hcl (Benadryl), 1 CAP PO PRN, (Reported) Gabapentin (Gabapentin), 1 TAB PO Q8H, (Reported) Hydroxyzine Hcl (Atarax), 1 TAB PO Q12H, (Reported) Prazosin Hcl (Prazosin Hcl), 1 CAP PO HS Trazodone HCl (Trazodone HCl), 1 TAB PO HS Past Medical History Past Medical History: Extremity Fracture, *PSYCH*, Schizophrenia Past Surgical History: no surgical history Alcohol Use: Occasionally Drug Use: marijuana, heroin Lives In: Home Occupation: employed Review of Systems All Other Systems at this time: Reviewed and Negative ROS As stated above in the HPI, otherwise all systems are reviewed and negative. Physical Exam Vital Signs: Temperature: 98.2, Source: Temporal, Heart Rate: 99, Respiratory Rate: 16, BP: 111/65, Pulse Oximetry: 98, Weight: 83.500 Oxygen Flow Rate: 0 Physical Exam General: Alert, no apparent distress. HEENT: PERRL, EOMI, no injection, moist mucous membranes. Respiratory: Lungs clear, no respiratory distress. Cardiovascular: Regular rate and rhythm, no murmurs. Neurologic: Oriented x4. Psychiatric: Normal mood and affect. Skin: Normal color, warm and dry. No edema, no ecchymosis. Progress Results/Orders Results/Orders Completed Orders - MANINDER PASTOR NP Chlordiazepoxide Capsule (Librium Capsul (02/21/25 14:35) Medications Received in ER Medications (Trade) Dose Ordered Sig/Compa Route PRN Reason Start Time Stop Time Status Last Admin Dose Admin (Librium capsule) 50 mg ONCE ONCE PO 02/21/25 14:35 02/21/25 14:36 DC 02/21/25 14:43 50 MG Vital Signs 02/21/25 02/21/25 12:53 14:43 Temp 98.2 Pulse 99 Resp 16 15 B/P (MAP) 111/65 Pulse Ox 98 O2 Flow Rate 0 Medical Decision Making Additional information obtaine: N/A Findings Patient reports he is in acute alcohol withdrawals he is not tachycardic in not tremulous going to discharge him and clear him for [facility] Differential Dx:Considerations: Include: Intoxication-Alcohol, Intoxication-Other drug, Personality disorder, Substance abuse disorder, Acute delirium, Closed head injury, Cervical spine injury, Skull fracture, Fracture(s), Abrasion, Contusion, Foreign body, Hematoma, Laceration, Alcohol withdrawl syndrom, Encephalopathy, Hepatitis, Medically stable, Other Departure Disposition: 01 HOME / SELF CARE / HOMELESS Impression: Primary Impression: Alcohol withdrawal Additional Impression: Opioid dependence, uncomplicated Condition: Improved Discharge Instructions: Medical Screening Exam Additional Instructions: medically cleared for [facility] Referrals: NO PRIMARY CARE PROVIDER (PCP) Prescriptions Chlordiazepoxide Hcl (Librium) 25 Mg Capsule 25 MG PO TID for alcohol withdrawl for 5 Days, #15 CAP 0 Refills Prov: MANINDER PASTOR [employer]ICENS[employer] COURT MAGISTRATE 02/21/25 Trazodone HCl (Trazodone HCl) 100 Mg Tablet 1 TAB PO HS for 30 Days, #30 TAB 0 Refills Prov: MANINDER PASTOR [address]IC[address] COURT MAGISTRATE 02/21/25 Prazosin Hcl (Prazosin Hcl) 2 Mg Capsule 1 CAP PO HS for 30 Days, #30 CAP 0 Refills Prov: MANINDER PASTOR [address]IC[address] COURT MAGISTRATE 02/21/25 Aripiprazole* (Abilify*) 5 Mg Tablet 3 TAB PO DAILY for 30 Days, #30 TAB 0 Refills Prov: MANINDER PASTOR NP 02/21/25 Buprenorphine HCl/Naloxone HCl (Suboxone 12 mg-3 mg Sl Film) 12 Mg-3 Mg Film 1 STRIP SL DAILY for 14 Days, #14 STRIP 0 Refills Prov: MANINDER PASTOR NP 02/21/25 Education Educated: Patient Educated regarding: diagnosis Signature Scribe Signature: r Attestation: Scribed for Maninder Pastor Business Office Specialist by Maninder Hedrick NP . 02/21/25 14:44 MANINDER PASTOR NP Feb 21, 2025 14:38
[2025-02-21] MEDS ORDERED: BUPR1FIL7 SL (14:40)
[2025-02-21] MEDS ORDERED: TRAZ-256 PO (14:42)
[2025-02-21] MEDS ORDERED: CHLO25CA10 PO (14:42)
[2025-02-21] MEDS ORDERED: ARIP5TAB12 PO (14:42)
[2025-02-21] MEDS ORDERED: PRAZ2CAP2 PO (14:42)
[2025-02-21 14:43] VITALS: RESP 15
[2025-02-22] MEDS ORDERED: BUPR1FIL7 SL (13:16)
== END 2025-02-21 14:55 | disposition home or self-care (01) ==
LOC: ER 12:33
DX: F10.239 Alcohol dependence with withdrawal, unspecified (principal); F11.20 Opioid dependence, uncomplicated; F20.9 Schizophrenia, unspecified; F12.90 Cannabis use, unspecified, uncomplicated; F15.90 Other stimulant use, unspecified, uncomplicated; Y90.9 Presence of alcohol in blood, level not specified
CPT/HCPCS: 99283